=== PATIENT | female | born 1985 | race African-American/Black ===

== ENCOUNTER 2017-11-09 02:01 | Emergency (ER) | payer MEDICARE, MEDICAID ==
[2017-11-09] MEDS ORDERED: PENICILLIN V POTASSIUM 500 MG TABLET PO ONE (02:32)
[2017-11-09] MEDS ORDERED: HYDROCODONE/ACETAMINOPHEN 5-325 MG TABLET PO ONE (02:32)
--- NOTE | 2017-11-09 02:37 | ER Document Report ---
ED Oral Problem - General Chief Complaint: Toothache Stated Complaint: DENTAL PAIN WITH SWELLING Time Seen by Provider: 11/09/17 02:16 Mode of Arrival: Medic Information source: Patient, Relative - HPI Patient complains to provider of: Swelling of jaw, Toothache Notes: Patient is here with complaints of right dental pain with right jaw swelling. Patient has poor dental hygiene and states she has not seen a dentist in several years. She apparently woke up this evening with some right-sided jaw pain and swelling so she called EMS to bring her to the emergency department. She has had no fevers. No difficulty breathing or swallowing. No nausea, vomiting, diarrhea. No chest pain or shortness of breath. No rash. Pain is worse with touching the area, seems to be somewhat better with heat. She denies any other complaints at this time. - Related Data Allergies/Adverse Reactions: No Known Allergies Allergy (Verified 11/09/17 02:04) Past Medical History - Social History Smoking Status: Never Smoker Chew tobacco use (# tins/day): No Frequency of alcohol use: None Drug Abuse: None Family History: Reviewed & Not Pertinent Patient has suicidal ideation: No Patient has homicidal ideation: No Renal/ Medical History: Denies: Hx Peritoneal Dialysis Psychiatric Medical History: Reports: Hx Attention Deficit Hyperactivity Disorder, Hx Bipolar Disorder - As described by the patient - Immunizations Immunizations up to date: Yes Hx Diphtheria, Pertussis, Tetanus Vaccination: Yes Review of Systems - Review of Systems -: Yes All other systems reviewed and negative Physical Exam - Vital signs Vitals: Temp Pulse Resp BP Pulse Ox 98.0 F 100 18 113/61 96 11/09/17 02:10 11/09/17 02:10 11/09/17 02:10 11/09/17 02:10 11/09/17 02:10 - Notes Notes: GENERAL: alert, cooperative, nontoxic, no distress. HEAD: normocephalic, atraumatic EYES: conjunctiva pink without discharge, no external redness or swelling. EARS: no external swelling, no external redness NOSE: atraumatic, no external swelling MOUTH/THROAT: mucous membranes moist and pink. Widespread dental decay. Swelling to the right external jaw with no erythema. No palpable abscess. Right lower molar either to 30 or 31 has a large cavity. There is some tenderness around this tooth. There is no fluctuant drainable abscess identified at this time. There is no sublingual swelling or induration. NECK: soft, supple, full range of motion, no meningismus. CHEST: no distress, lungs clear and equal throughout. No wheezing, rales, rhonchi. CARDIAC: regular rate and rhythm, no murmur, normal capillary refill, normal pulses. BACK: full range of motion, no CVA tenderness. EXTREMITIES: full range of motion of all extremities. No redness, no swelling. NEURO: alert and oriented 3, no focal deficits, full range of motion of all extremities. PYSCH: appropriate mood, affect. Patient is cooperative. SKIN: pink, warm, dry, no rash. Course - Re-evaluation Re-evalutation: 11/09/17 02:34 Patient is nontoxic appearing with stable vitals. The patient is here with right jaw pain and swelling with right dental pain. She has widespread poor dental decay and has a large decayed tooth either to 30 or 31 that is tender around the gum. There is no drainable abscess identified. There is no facial cellulitis. Patient is afebrile with stable vitals. She is nontoxic appearing. There is no sign of Casey's angina. Patient will be given antibiotics and pain medication here in the emergency department. Discharged home with instructions to follow-up with a dentist at the next available appointment. Follow-up sooner for worsening pain, high fever, difficulty breathing or swallowing, or for any further concerns. The patient is noted to have elevated blood pressure during today's emergency department visit. The patient was informed of this finding. The patient was instructed that this may be related to pre-hypertension and requires further evaluation with a primary care provider. The patient has no hypertensive symptoms at this time. The patient's emergency department workup and current diagnosis were explained to the patient and or family. Follow-up instructions were provided. Medications if prescribed were discussed. Instructions for when to return to the emergency department including specific worrisome symptoms were discussed with the patient and/or family. - Vital Signs Vital signs: Temp Pulse Resp BP Pulse Ox 98.0 F 100 18 113/61 96 11/09/17 02:10 11/09/17 02:10 11/09/17 02:10 11/09/17 02:10 11/09/17 02:10 Discharge - Discharge Clinical Impression: Dental abscess Condition: Stable Disposition: HOME, SELF-CARE Instructions: [facility], Abscess ([facility]), Penicillin V K ([facility]), Toothache ([facility]), Oral Narcotic Medication ([facility]), Dentist Additional Instructions: Take medications as prescribed. Follow-up with a dentist at the next available appointment. Follow-up sooner for worsening pain, fever, swelling, difficulty breathing or swelling, or for any further concerns. Your blood pressure was elevated during today's visit. Have this rechecked with your doctor. The medication you were prescribed today may cause drowsiness. Do not drive or operate heavy machinery while taking this medication. Prescriptions: Hydrocodone/Acetaminophen [[place] 5-325 mg Tablet] 1 tab PO Q6H PRN #8 tab PRN Reason: Penicillin V Potassium [Penicillin Vk 500 mg Tablet] 500 mg PO QID #40 tablet Forms: Elevated Blood Pressure, Smoking Cessation Education Referrals: [facility] [Provider Group] - Follow up as needed [facility] [Provider Group] - Follow up as needed
[2017-11-09 03:09] VITALS: BP 102/64
== END 2017-11-09 03:28 | disposition home or self-care (01) ==
LOC: ER 02:01
DX: K04.7 Periapical abscess without sinus (principal); R03.0 Elevated blood-pressure reading, without diagnosis of hypertension
CPT/HCPCS: 99283; A9270 ×2

== ENCOUNTER 2018-01-24 19:09 | Observation (INO) | payer MEDICARE, MEDICAID ==
--- NOTE | 2018-01-24 20:45 | ER Document Report ---
ED General - General Chief Complaint: Chest Pain Stated Complaint: CHEST PAIN Time Seen by Provider: 01/24/18 20:16 Mode of Arrival: Ambulatory Information source: Patient Notes: 32-year-old female with no reported past medical history presents with complaint of chest pain that started 1 day prior to arrival. Patient states that yesterday evening while at rest she experienced chest tightness. She states that she is experience this intermittently throughout the night and most of today. She is currently pain-free and states the last time she felt chest tightness was 2 hours ago. Patient also reports new onset peripheral edema. She denies any fever, chills, shortness of breath. She does admit to a nonproductive dry cough. She denies any prior similar symptoms. She denies family history of early cardiac disease. She denies any new medications. She is a former smoker, denies alcohol and drug use. TRAVEL OUTSIDE OF THE [place] IN LAST 30 DAYS: No - HPI Onset: Yesterday Onset/Duration: Gradual, Intermittent, Gone Quality of pain: Other - tightness Severity: None Associated symptoms: Nonproductive cough Exacerbated by: Denies Relieved by: Denies Similar symptoms previously: No Recently seen / treated by doctor: No - Related Data Allergies/Adverse Reactions: No Known Allergies Allergy (Verified 11/09/17 02:04) Past Medical History - General Information source: Patient - Social History Smoking Status: Former Smoker Frequency of alcohol use: None Drug Abuse: None Lives with: Friend Family History: Reviewed & Not Pertinent - Medical History Medical History: Negative Renal/ Medical History: Denies: Hx Peritoneal Dialysis Psychiatric Medical History: Reports: Hx Attention Deficit Hyperactivity Disorder, Hx Bipolar Disorder - As described by the patient - Immunizations Immunizations up to date: Yes Hx Diphtheria, Pertussis, Tetanus Vaccination: Yes Review of Systems - Review of Systems Notes: REVIEW OF SYSTEMS: CONSTITUTIONAL : Denies fever, chills, or sweats. Denies recent illness. Denies weight loss, recent hospitalizations. EENT: Denies visula changes, eye pain. Denies nasal or sinus congestion or discharge. Denies sore throat, oral lesions, difficulty swallowing. CARDIOVASCULAR: Denies palpitations or racing or irregular heart beat. RESPIRATORY: Denies cold, or chest congestion. Denies shortness of breath, difficulty breathing, or wheezing. GASTROINTESTINAL: Denies abdominal pain or distention. Denies nausea, vomiting , or diarrhea. Denies blood in vomitus, stools, or per rectum. Denies black, tarry stools. Denies constipation. GENITOURINARY: Denies difficulty urinating, painful urination, burning, frequency, blood in urine, or vaginal discharge. MUSCULOSKELETAL: Denies back or neck pain or stiffness. Denies joint pain or swelling. SKIN: Denies rash, lesions or sores. HEMATOLOGIC : Denies easy bruising or bleeding. LYMPHATIC: Denies swollen, enlarged glands. NEUROLOGICAL: Denies confusion or altered mental status. Denies passing out or loss of consciousness. Denies dizziness or lightheadedness. Denies headache. Denies weakness or paralysis or loss of use of either side. Denies problems with gait or speech. Denies sensory loss, numbness, or tingling. Denies seizures. PSYCHIATRIC: Denies anxiety or stress. Denies depression, suicidal ideation, or homicidal ideation. Physical Exam - Vital signs Vitals: Temp Pulse Resp BP Pulse Ox 97.6 F 88 16 124/83 98 01/24/18 19:38 01/24/18 19:38 01/24/18 19:38 01/24/18 19:38 01/24/18 19:38 - Notes Notes: PHYSICAL EXAMINATION: GENERAL: Well-appearing, well-nourished and in no acute distress. HEAD: Atraumatic, normocephalic. EYES: Pupils equal round and reactive to light, extraocular movements intact, conjunctiva are normal. ENT: Nares patent, oropharynx clear without exudates. Moist mucous membranes. NECK: Normal range of motion, supple without lymphadenopathy LUNGS: Breath sounds clear to auscultation bilaterally and equal. No wheezes rales or rhonchi. HEART: Regular rate and rhythm without murmurs ABDOMEN: Soft, nontender, nondistended abdomen. No guarding, no rebound. No masses appreciated. Female : deferred Musculoskeletal: Normal range of motion, 1+ edema. No cyanosis. NEUROLOGICAL: Cranial nerves grossly intact. Normal speech, normal gait. Normal sensory, motor exams PSYCH: Normal mood, normal affect. SKIN: Warm, Dry, normal turgor, no rashes or lesions noted. Course - Re-evaluation Re-evalutation: 01/25/18 00:15 Laboratory 01/24/18 01/24/18 01/24/18 21:14 21:14 21:14 WBC 8.4 RBC 4.18 Hgb 12.7 Hct 37.8 MCV 90 MCH 30.5 MCHC 33.7 RDW 14.1 H Plt Count 274 Seg Neutrophils % 63.9 Lymphocytes % 24.9 Monocytes % 6.6 Eosinophils % 4.3 Basophils % 0.3 Absolute Neutrophils 5.4 Absolute Lymphocytes 2.1 Absolute Monocytes 0.6 Absolute Eosinophils 0.4 Absolute Basophils 0.0 D-Dimer Sodium 142.7 Potassium 3.9 Chloride 107 Carbon Dioxide 28 Anion Gap 8 BUN 7 Creatinine 0.67 Est GFR ( Amer) > 60 Est GFR (Non-Af Amer) > 60 Glucose 75 Calcium 9.4 Total Bilirubin 0.8 Direct Bilirubin 0.2 Neonat Total Bilirubin Not Reportable Neonat Direct Bilirubin Not Reportable Neonat Indirect Bili Not Reportable AST 18 ALT 16 Alkaline Phosphatase 60 Creatine Kinase 100 CK-MB (CK-2) 0.59 Troponin I < 0.012 NT-Pro-B Natriuret Pep 380 H Total Protein 6.6 Albumin 3.7 Urine Color Urine Appearance Urine pH Ur Specific Roma Urine Protein Urine Glucose (UA) Urine Ketones Urine Blood Urine Nitrite Urine Bilirubin Urine Urobilinogen Ur Leukocyte Esterase Urine WBC (Auto) Urine RBC (Auto) Urine Bacteria (Auto) Urine WBC Clumps Squamous Epi Cells Auto Urine Mucus (Auto) Urine Ascorbic Acid Urine Opiates Screen Urine Methadone Screen Ur Barbiturates Screen Ur Phencyclidine Scrn Ur Amphetamines Screen U Benzodiazepines Scrn Urine Cocaine Screen U Marijuana (THC) Screen 01/24/18 01/24/18 01/24/18 21:14 23:35 23:35 WBC RBC Hgb Hct MCV MCH MCHC RDW Plt Count Seg Neutrophils % Lymphocytes % Monocytes % Eosinophils % Basophils % Absolute Neutrophils Absolute Lymphocytes Absolute Monocytes Absolute Eosinophils Absolute Basophils D-Dimer 0.92 H Sodium Potassium Chloride Carbon Dioxide Anion Gap BUN Creatinine Est GFR ( Amer) Est GFR (Non-Af Amer) Glucose Calcium Total Bilirubin Direct Bilirubin Neonat Total Bilirubin Neonat Direct Bilirubin Neonat Indirect Bili AST ALT Alkaline Phosphatase Creatine Kinase CK-MB (CK-2) Troponin I NT-Pro-B Natriuret Pep Total Protein Albumin Urine Color YELLOW Urine Appearance CLOUDY Urine pH 7.0 Ur Specific Roma 1.006 Urine Protein NEGATIVE Urine Glucose (UA) NEGATIVE Urine Ketones NEGATIVE Urine Blood SMALL H Urine Nitrite NEGATIVE Urine Bilirubin NEGATIVE Urine Urobilinogen NEGATIVE Ur Leukocyte Esterase SMALL H Urine WBC (Auto) 11 Urine RBC (Auto) 2 Urine Bacteria (Auto) TRACE Urine WBC Clumps RARE Squamous Epi Cells Auto 25 Urine Mucus (Auto) RARE Urine Ascorbic Acid NEGATIVE Urine Opiates Screen NEGATIVE Urine Methadone Screen NEGATIVE Ur Barbiturates Screen NEGATIVE Ur Phencyclidine Scrn NEGATIVE Ur Amphetamines Screen NEGATIVE U Benzodiazepines Scrn NEGATIVE Urine Cocaine Screen NEGATIVE U Marijuana (THC) Screen NEGATIVE Chest X-Ray 01/24/18 20:39 IMPRESSION: Peribronchial cuffing and interstitial changes. No dense consolidation, significant effusion, or pneumothorax. 32-year-old female with no reported past medical history presents with complaint of chest pain that started 1 day prior to arrival. Patient states that yesterday evening while at rest she experienced chest tightness. She states that she is experience this intermittently throughout the night and most of today. She is currently pain-free and states the last time she felt chest tightness was 2 hours ago. Patient also reports new onset peripheral edema. She denies any fever, chills, shortness of breath. She does admit to a nonproductive dry cough. Upon arrival patient was placed on astrochemist and EKG was obtained which shows the patient be in normal this rhythm but does have low voltage throughout. Exam is significant for 1+ pitting edema bilaterally. Chest x-ray significant for peribronchial cuffing. CTA does show bilateral pleural effusions but no PE. Patient did receive Lasix 20 mg p.o. Patient agreeable to admission. CBC is without leukocytosis or anemia. CMP shows no electrolyte abnormalities. Cardiac enzymes are within normal limits. Patient does have an elevated BNP, mildly elevated d-dimer. Urinalysis within normal limits urine drug screen within normal limits. Hospitalist consulted for admission. There is concern for cardiomyopathy in a healthy 32-year-old female. 01/25/18 00:23 01/25/18 00:23 01/25/18 00:24 - Vital Signs Vital signs: Temp Pulse Resp BP Pulse Ox 97.6 F 88 18 131/86 H 100 01/24/18 19:38 01/24/18 19:38 01/24/18 23:08 01/24/18 23:08 01/24/18 23:08 - Laboratory Result Diagrams: 01/24/18 21:14 01/24/18 21:14 Laboratory results interpreted by me: 01/24/18 01/24/18 01/24/18 21:14 21:14 21:14 RDW 14.1 H D-Dimer 0.92 H NT-Pro-B Natriuret Pep 380 H Urine Blood Ur Leukocyte Esterase 01/24/18 23:35 RDW D-Dimer NT-Pro-B Natriuret Pep Urine Blood SMALL H Ur Leukocyte Esterase SMALL H - Diagnostic Test Radiology reviewed: Image reviewed, Reports reviewed - EKG Interpretation by Me EKG shows normal: Sinus rhythm Rate: Normal Rhythm: NSR Voltage: Decreased voltage When compared to previous EKG there are: Previous EKG unavailable Discharge - Discharge Clinical Impression: Elevated brain natriuretic peptide (BNP) level, Peripheral edema, Pleural effusion Chest pain Qualifiers: Chest pain type: unspecified Qualified Code(s): R07.9 - Chest pain, unspecified Condition: Good Disposition: ADMITTED INPATIENT Admitting Provider: Hospitalist Unit Admitted: Telemetry Forms: Elevated Blood Pressure
--- NOTE | 2018-01-24 21:09 | RADIOLOGY REPORT (SQ) ---
EXAM DESCRIPTION: CHEST 2 VIEWS COMPLETED DATE/TIME: 01/24/2018 9:02 pm REASON FOR STUDY: chest pain COMPARISON: None. NUMBER OF VIEWS: Two view. TECHNIQUE: Frontal and lateral radiographic views of the chest acquired. LIMITATIONS: None. FINDINGS: LUNGS AND PLEURA: Peribronchial cuffing and interstitial changes. No dense consolidation, significant effusion, or pneumothorax. MEDIASTINUM AND HILAR STRUCTURES: No masses. No contour abnormalities. HEART AND VASCULAR STRUCTURES: Heart normal in size and contour. No evidence for failure. BONES: No acute findings. HARDWARE: None in the chest. OTHER: No other significant finding. IMPRESSION: Peribronchial cuffing and interstitial changes. No dense consolidation, significant eff usion, or pneumothorax. TECHNICAL DOCUMENTATION: JOB ID: [id number] 2010 [employer]- All Rights Reserved Reading location - IP/workstation name: [email or web address]
[2018-01-24] MEDS ORDERED: FUROSEMIDE INJ/PF 20 MG/2 ML SDV IV ONE (21:14)
[2018-01-24 21:29] LABS: ABSOLUTE EOSINOPHILS # (AUTO) 0.4 10^3/uL (0.0-0.6); ABSOLUTE LYMPHOCYTES (AUTO) 2.1 10^3/uL (0.5-4.7); ABSOLUTE MONOCYTES (AUTO) 0.6 10^3/uL (0.1-1.4); ABSOLUTE NEUT (AUTO) 5.4 10^3/uL (1.7-8.2); BASOPHILS % (AUTO) 0.3 % (0-2); EOSINOPHILS % (AUTO) 4.3 % (0-6); HEMATOCRIT 37.8 % (36.0-47.0); HEMOGLOBIN 12.7 g/dL (12.0-15.5); LYMPHOCYTES % (AUTO) 24.9 % (13-45); MEAN CORPUSCULAR HEMOGLOBIN 30.5 pg (27.0-33.4); MEAN CORPUSCULAR HGB CONC 33.7 g/dL (32.0-36.0); MEAN CORPUSCULAR VOLUME 90 fl (80-97); MONOCYTES % (AUTO) 6.6 % (3-13); PLATELET COUNT 274 10^3/uL (150-450); RED BLOOD COUNT 4.18 10^6/uL (3.72-5.28); RED CELL DISTRIBUTION WIDTH 14.1 % (11.5-14.0); SEGMENTED NEUTROPHILS % (AUTO) 63.9 % (42-78); TOTAL CELLS COUNTED % (AUTO) 100 %; WHITE BLOOD COUNT 8.4 10^3/uL (4.0-10.5)
[2018-01-24 21:51] LABS: ALANINE AMINOTRANSFERASE 16 U/L (9-52); ALBUMIN 3.7 g/dL (3.5-5.0); ALKALINE PHOSPHATASE 60 U/L (38-126); ANION GAP 8 (5-19); ASPARTATE AMINO TRANSFERASE 18 U/L (14-36); BILIRUBIN,DIRECT 0.2 mg/dL (0.0-0.4); BILIRUBIN,TOTAL 0.8 mg/dL (0.2-1.3); BLOOD UREA NITROGEN 7 mg/dL (7-20); CALCIUM 9.4 mg/dL (8.4-10.2); CARBON DIOXIDE 28 mmol/L (22-30); CHLORIDE 107 mmol/L (98-107); CREATINE KINASE 100 U/L (30-135); GLUCOSE 75 mg/dL (75-110); POTASSIUM 3.9 mmol/L (3.6-5.0); SODIUM 142.7 mmol/L (137-145); TOTAL PROTEIN 6.6 g/dL (6.3-8.2)
[2018-01-24 21:57] LABS: CREATINE KINASE MB 0.59 ng/mL (<4.55); NT PRO BNP 380 pg/mL (<125)
[2018-01-24 22:05] LABS: TROPONIN I < 0.012 ng/mL
--- NOTE | 2018-01-24 22:36 | EKG REPORT ---
SEVERITY:- BORDERLINE ECG - SINUS RHYTHM LOW VOLTAGE IN FRONTAL LEADS : Confirmed by: Judith Dias MD 24-Jan-2018 22:36:15
[2018-01-24 23:58] LABS: APPEARANCE,URINE CLOUDY; BILIRUBIN,URINE NEGATIVE (NEGATIVE); COLOR,URINE YELLOW; GLUCOSE, URINE NEGATIVE (NEGATIVE); KETONES,URINE NEGATIVE (NEGATIVE); LEUKOCYTE ESTERASE,URINE SMALL (NEGATIVE); NITRITE,URINE NEGATIVE (NEGATIVE); PROTEIN,URINE NEGATIVE (NEGATIVE); URINE SPECIFIC GRAVITY 1.006; UROBILINOGEN,URINE NEGATIVE mg/dL (<2.0)
--- NOTE | 2018-01-25 00:05 | RADIOLOGY REPORT (SQ) ---
EXAM DESCRIPTION: CT CHEST ANGIOGRAPHY WITHOUT THEN WITH IV CONTRAST CLINICAL HISTORY: 32 years Female, elevated dimer 0.92 Comparison: CR, same day. Technique: IV contrast. Coronal and sagittal reformat. 3d reconstruction. This exam was performed according to our departmental dose-optimization program, which includes automated exposure control, adjustment of the mA and/or kV according to patient size and/or use of iterative reconstruction technique.[facility]: Dose Right [facility]: CareDose [facility]: Dose Right [facility]: Teradose 4D [facility]: Smart [employer] LIMITATIONS: None Findings: Small moderate bilateral pleural effusions, left more than right. Mild dependent atelectasis or scar. Mild mixed interstitial and hazy airspace opacity in the left lower lobe.. No pulmonary embolus. No right ventricular strain. Inferior neck, axillae, mediastinum, lungs, airway, lymphatics, heart, vasculature, upper abdomen, and musculoskeleton appear unremarkable. Impression: 1. Mild mixed interstitial and airpace opacities of the left lower lobe. Small-moderate bilateral pleural effusions, left more than right. Differential diagnosis includes subacute pulmonary edema and atypical pneumonitis. Two. No pulmonary embolus.
[2018-01-25 00:09] LABS: URINE AMPHETAMINES SCREEN NEGATIVE; URINE BARBITURATES SCREEN NEGATIVE; URINE BENZODIAZEPINES SCREEN NEGATIVE; URINE COCAINE SCREEN NEGATIVE; URINE MARIJUANA (THC) SCREEN NEGATIVE; URINE METHADONE SCREEN NEGATIVE; URINE PHENCYCLIDINE SCREEN NEGATIVE
[2018-01-25] MEDS ORDERED: FUROSEMIDE INJ/PF 20 MG/2 ML SDV ONE (00:28)
[2018-01-25 05:52] LABS: ANION GAP 9 (5-19); BLOOD UREA NITROGEN 8 mg/dL (7-20); CALCIUM 9.4 mg/dL (8.4-10.2); CARBON DIOXIDE 28 mmol/L (22-30); CHLORIDE 106 mmol/L (98-107); GLUCOSE 95 mg/dL (75-110); POTASSIUM 3.6 mmol/L (3.6-5.0); SODIUM 143.1 mmol/L (137-145)
[2018-01-25] MEDS: HEPARIN SOD (PORCINE) 5,000 UNIT/ML 1 ML SYRINGE SUBCUT SCH ×2 (06:27→13:34)
--- NOTE | 2018-01-25 06:47 | PDOC H&P ---
History of Present Illness Admission Date/PCP: 01/25/18 00:28 Patient complains of: Chest tightness and leg swelling History of Present Illness: SHILO KNIGHT is a 32 year old female with past medical history ADHD and presents with 1 week of leg edema, chest tightness, palpitations and orthopnea. Patient denies previous episode, prolonged chest pain, nausea or vomiting, she denies recent viral illness, stimulants, [id number] medication use, alcohol, diet supplements or energy drinks. She admits to consuming approximately four 64 ounce beverages a day and complains of heat intolerance, anxiety and insomnia. She complains of acute on chronic dental pain to the right jaw. Past Medical History Medical History: None Psychiatric Medical History: Reports: Attention Deficit Hyperactivity Disorder, Bipolar Disorder - As described by the patient Past Surgical History Past Surgical History: Reports: None Social History Information Source: Patient Lives with: Friend Smoking Status: Former Smoker Frequency of Alcohol Use: None Drugs: None - Advance Directive Resuscitation Status: Full Code Family History Family History: Reviewed & Not Pertinent Parental Family History Reviewed: Yes Children Family History Reviewed: Yes Sibling(s) Family History Reviewed.: Yes Medication/Allergy Home Medications: Hydrocodone/Acetaminophen [[place] 5-325 mg Tablet] 1 tab PO Q6H PRN #8 tab Penicillin V Potassium [Penicillin Vk 500 mg Tablet] 500 mg PO QID #40 tablet Allergies/Adverse Reactions: No Known Allergies Allergy (Verified 11/09/17 02:04) Review of Systems Constitutional: ABSENT: chills, fever(s), headache(s), weight gain, weight loss Eyes: ABSENT: visual disturbances Ears: ABSENT: hearing changes Cardiovascular: ABSENT: chest pain, dyspnea on exertion, edema, orthropnea, palpitations Respiratory: ABSENT: cough, hemoptysis Gastrointestinal: ABSENT: abdominal pain, constipation, diarrhea, hematemesis, hematochezia, nausea, vomiting Genitourinary: ABSENT: dysuria, hematuria Musculoskeletal: ABSENT: joint swelling Integumentary: ABSENT: rash, wounds Neurological: ABSENT: abnormal gait, abnormal speech, confusion, dizziness, focal weakness, syncope Psychiatric: ABSENT: anxiety, depression, homidical ideation, suicidal ideation Endocrine: ABSENT: cold intolerance, heat intolerance, polydipsia, polyuria Hematologic/Lymphatic: ABSENT: easy bleeding, easy bruising Physical Exam Vital Signs: Temp Pulse Resp BP Pulse Ox 98.3 F 123 H 18 110/68 99 01/25/18 04:09 01/25/18 04:09 01/25/18 04:09 01/25/18 04:09 01/25/18 04:09 Intake & Output 01/23/18 01/24/18 01/25/18 11:59 11:59 11:59 Intake Total 905 Balance 905 Weight 76.8 kg General appearance: PRESENT: no acute distress, well-developed, well-nourished Head exam: PRESENT: atraumatic, normocephalic Eye exam: PRESENT: conjunctiva pink, EOMI, PERRLA. ABSENT: scleral icterus Ear exam: PRESENT: normal external ear exam Mouth exam: PRESENT: moist, tongue midline Neck exam: ABSENT: carotid bruit, JVD, lymphadenopathy, thyromegaly Respiratory exam: PRESENT: clear to auscultation emily. ABSENT: rales, rhonchi, wheezes Cardiovascular exam: PRESENT: RRR. ABSENT: diastolic murmur, rubs, systolic murmur Pulses: PRESENT: normal dorsalis pedis pul Vascular exam: PRESENT: normal capillary refill GI/Abdominal exam: PRESENT: normal bowel sounds, soft. ABSENT: distended, guarding, mass, organolmegaly, rebound, tenderness Rectal exam: PRESENT: deferred Extremities exam: PRESENT: full ROM. ABSENT: calf tenderness, clubbing, pedal edema Neurological exam: PRESENT: alert, awake, oriented to person, oriented to place , oriented to time, oriented to situation, CN II-XII grossly intact. ABSENT: motor sensory deficit Psychiatric exam: PRESENT: appropriate affect, normal mood. ABSENT: homicidal ideation, suicidal ideation Skin exam: PRESENT: dry, intact, warm. ABSENT: cyanosis, rash Results Laboratory Results: 01/25/18 04:32 01/25/18 04:32 Sodium 143.1 Potassium 3.6 Chloride 106 Carbon Dioxide 28 Anion Gap 9 BUN 8 Creatinine 0.74 Est GFR ( Amer) > 60 Est GFR (Non-Af Amer) > 60 Glucose 95 Calcium 9.4 Impressions: Chest X-Ray 01/24/18 20:39 IMPRESSION: Peribronchial cuffing and interstitial changes. No dense consolidation, significant effusion, or pneumothorax. Assessment & Plan - Diagnosis (1) Cardiomyopathy Is this a current diagnosis for this admission?: Yes Plan: Likely secondary uncontrolled ADHD with high-output tachycardia. Trial trazodone, beta-moira, follow-up 2D echo (2) Dental abscess Is this a current diagnosis for this admission?: Yes Plan: Doxycycline. (3) ADHD Is this a current diagnosis for this admission?: Yes Plan: Trial trazodone, consider SSRI, avoid amphetamine, education - Time Time Spent: 30 to 50 Minutes - Inpatient Certification Medical Necessity: Need Close Monitoring Due to Risk of Patient Decompensation
[2018-01-25] MEDS ORDERED: DOXYCYCLINE HYCLATE 100 MG TABLET PO ONE ×2 (07:00→08:00)
[2018-01-25] MEDS ORDERED: TRAZODONE HCL 50 MG TABLET PO ONE (07:30)
[2018-01-25] MEDS ORDERED: METOPROLOL TARTRATE 50 MG TABLET PO ONE (07:30)
[2018-01-25] MEDS ORDERED: ASPIRIN 81 MG TABLET, ENT COATED PO SCH (10:00)
[2018-01-25] MEDS ORDERED: TRAZODONE HCL 50 MG TABLET PO SCH ×2 (10:00→22:00)
[2018-01-25] MEDS ORDERED: ENALAPRIL MALEATE 2.5 MG TABLET PO SCH (10:00)
[2018-01-25] MEDS ORDERED: POTASSIUM CHLORIDE 10 MEQ TABLET.SA PO SCH (10:00)
[2018-01-25] MEDS ORDERED: DOCUSATE SODIUM 100 MG CAPSULE PO SCH (10:00)
[2018-01-25] MEDS ORDERED: DOXYCYCLINE HYCLATE 100 MG TABLET PO SCH ×2 (10:00→22:00)
--- NOTE | 2018-01-25 13:54 | XCELERA REPORT ---
[address] [address] Transthoracic Echocardiogram Report Name: SHILO KNIGHT Age: 32 yrs Gender: Female : 1985 Patient Status: Inpatient Patient Location: [address] [place] [address] Study Date: 01/25/2018 10:35 AM Procedure: A complete two-dimensional transthoracic echocardiogram was performed (2D, M-mode, spectral and color flow Doppler). The study was technically adequate with some images being suboptimal in quality. 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 There is normal left ventricular wall thickness. The left ventricle is grossly normal size. Doppler measurements suggest normal left ventricular diastolic function Wall motion cannot be accurately commented on, but no definite regional wall motion abnormalities noted. The right ventricle is mildly dilated. The right ventricular systolic function is normal. The right atrium is normal in size The left atrial size is normal. There is no mitral valve stenosis. There is no mitral regurgitation noted. No aortic regurgitation is present. There is no aortic valve stenosis There is a trace or physiologic amount of tricuspid regurgitation Tricuspid regurgitation jet envelope not well defined to measure RV systolic pressure accurately. The aortic root is not well visualized but is probably normal size. The inferior vena cava was not well visualized There is no pericardial effusion. MMode/2D Measurements & Calculations RVDd: 2.1 cm LVIDd: 4.4 cm FS: 41.2 % Ao root diam: 2.3 cm IVSd: 0.74 cm LVIDs: 2.6 cm EDV(Teich): 85.8 ml Ao root area: 4.3 cm2 LVPWd: 1.0 cm ESV(Teich): 23.8 ml EF(Teich): 72.3 % LVOT diam: 1.9 cm LVOT area: 2.7 cm2 Doppler Measurements & Calculations MV E max shreyas: MV dec slope: Ao V2 max: LV V1 max P.5 cm/sec 92.0 cm/sec 3.2 mmHg MV A max shreyas: 679.2 cm/sec2 Ao max PG: LV V1 max: 65.4 cm/sec MV dec time: 3.4 mmHg 89.5 cm/sec MV E/A: 1.6 0.16 sec PETER(V,D): 2.6 cm2 PA V2 max: PI end-d shreyas: TR max shreyas: Pulm Sys Shreyas: 76.9 cm/sec 104.4 cm/sec 184.5 cm/sec 71.3 cm/sec PA max PG: TR max PG: Pulm Grijalva Shreyas: 2.4 mmHg 13.6 mmHg 56.9 cm/sec Pulm S/D: 1.3 Left Ventricle The left ventricle is grossly normal size. There is normal left ventricular wall thickness. The left ventricular ejection fraction is normal. Doppler measurements suggest normal left ventricular diastolic function. Wall motion cannot be accurately commented on, but no definite regional wall motion abnormalities noted. Right Ventricle The right ventricle is mildly dilated. There is normal right ventricular wall thickness. The right ventricular systolic function is normal. Atria The right atrium is normal in size. The left atrial size is normal. Interarterial septum not well visualized and not well dopplered. Cannot comment on ASD/PFO presence. Mitral Valve The mitral valve is grossly normal. There is no mitral valve stenosis. There is no mitral regurgitation noted. Aortic Valve The aortic valve is grossly normal. There is no aortic valve stenosis. No aortic regurgitation is present. Tricuspid Valve The tricuspid valve is not well visualized, but is grossly normal. There is no tricuspid stenosis. There is a trace or physiologic amount of tricuspid regurgitation. Tricuspid regurgitation jet envelope not well defined to measure RV systolic pressure accurately. Pulmonic Valve The pulmonic valve is not well visualized. Great Vessels The aortic root is not well visualized but is probably normal size. The inferior vena cava was not well visualized. Effusions There is no pericardial effusion. : BEHZAD THOMPSON > Rex Daily
[2018-01-25 16:07] VITALS: BP 97/55
[2018-01-25] MEDS ORDERED: METOPROLOL TARTRATE 50 MG TABLET PO SCH (22:00)
--- NOTE | 2018-01-26 09:41 | PDOC DISCHARGE SUMMARY ---
General - Admit/Disc Date/PCP Admission Date/Primary Care Provider: 01/25/18 00:28 Discharge Date: 01/26/18 - Discharge Diagnosis (1) Peripheral edema Is this a current diagnosis for this admission?: Yes Summary: Resolved on its own as we got her to come down. Her echocardiogram showed a normal ejection fraction, no evident wall motion abnormality, no valvular abnormalities. She came in very tachycardic, and agitated. I suspect this is high output (diastolic) heart failure that resolved with slowing her heart rate. There is some question of whether she may have been drinking energy drinks. She is quite impaired and provides a patchy history. I empirically put her on some Coreg to see if we could limit her heart rate when she gets agitated. She can follow-up as an outpatient. (2) ADHD Is this a current diagnosis for this admission?: Yes Summary: Not on any medication. Does not appear to have primary care. We have made a referral. (3) Dental abscess Is this a current diagnosis for this admission?: Yes Summary: Discharged on doxycycline and recommended that she follow-up with a dentist in about a week. - Additional Information Resuscitation Status: Full Code Discharge Diet: Cardiac Discharge Activity: Activity As Tolerated Prescriptions: Carvedilol [Coreg 3.125 mg Tablet] 3.125 mg PO Q12 #60 tablet Doxycycline Hyclate [Vibramycin 100 mg Tablet] 100 mg PO Q12 #20 tablet Home Medications: Carvedilol [Coreg 3.125 mg Tablet] 3.125 mg PO Q12 #60 tablet 01/25/18 Doxycycline Hyclate [Vibramycin 100 mg Tablet] 100 mg PO Q12 #20 tablet History of Present Illness Patient complains of: Leg swelling History of Present Illness: SHILO KNIGHT is a 32 year old female with past medical history ADHD and presents with 1 week of leg edema, chest tightness, palpitations and orthopnea. Patient denies previous episode, prolonged chest pain, nausea or vomiting, she denies recent viral illness, stimulants, [id number] medication use, alcohol, diet supplements or energy drinks. She admits to consuming approximately four 64 ounce beverages a day and complains of heat intolerance, anxiety and insomnia. She complains of acute on chronic dental pain to the right jaw. Hospital Course Hospital Course: Echocardiogram showed a normal ventricular ejection fraction. She was given trazodone at night to help her rest which also brought down her heart rate. Her symptoms resolved overnight. I empirically started her on some Coreg to see if we could limit her rate related symptoms. She is not on any medication for her ADHD. She needs to establish primary care. We started her on antibiotics for some jaw swelling and recommended that she follow-up with a dentist. I think her symptoms are most likely related to consumption of sport drinks in someone who does not need any additional stimulation. I warned against future use. Physical Exam Vital Signs: Temp Pulse Resp BP Pulse Ox 98.2 F 88 15 97/55 L 100 01/25/18 16:00 01/25/18 16:00 01/25/18 16:00 01/25/18 16:00 01/25/18 16:00 Intake & Output 01/25/18 01/26/18 01/27/18 05:59 05:59 05:59 Intake Total 5 900 Balance 5 900 Weight 169 lb 5.04 oz General appearance: PRESENT: no acute distress Respiratory exam: PRESENT: clear to auscultation emily Cardiovascular exam: PRESENT: RRR GI/Abdominal exam: PRESENT: soft Extremities exam: ABSENT: other - No edema Neurological exam: PRESENT: alert, CN II-XII grossly intact. ABSENT: motor sensory deficit Psychiatric exam: PRESENT: unusual affect Skin exam: PRESENT: warm Results Laboratory Results: 01/25/18 04:32 Impressions: Chest X-Ray 01/24/18 20:39 IMPRESSION: Peribronchial cuffing and interstitial changes. No dense consolidation, significant effusion, or pneumothorax. Qualifiers - * PATIENT BEING DISCHARGED WITH ANY OF THE FOLLOWING DIAGNOSIS: Heart Failure HF Pt being discharged on ACEI for LVEF less than 40%?: No Reason(s) for not prescribing ACEI:: Not indicated HF Pt being discharged on ARBS for LVEF less than 40%?: No Reason(s) for not prescribing ARBS:: Not indicated HF Pt with Afib discharged with Warfarin?: No Reason(s) for not prescribing Warfarin:: Not indicated HF Pt discharged on evidence-based Beta Gema:: Yes
== END 2018-01-25 16:32 | disposition home or self-care (01) ==
LOC: ER 19:09 → OBSVTOIN 01-25 00:28 → EH 01-25 00:28 → INTOOBSV 01-25 00:28 → 4N 01-25 02:00
PROVIDERS: ADMIT Internal Medicine; ATTEND Internal Medicine
DX: R60.0 Localized edema (principal); R00.0 Tachycardia, unspecified; R45.1 Restlessness and agitation; F90.9 Attention-deficit hyperactivity disorder, unspecified type; K04.7 Periapical abscess without sinus; F41.9 Anxiety disorder, unspecified; G47.00 Insomnia, unspecified; R05 Cough; R07.89 Other chest pain; J90 Pleural effusion, not elsewhere classified; Z87.891 Personal history of nicotine dependence; R79.89 Other specified abnormal findings of blood chemistry
CPT/HCPCS: 93005; 99285; 36415 ×2; 82553; 82550; 84443; 85025; 85652; 80048; 80053; 81001; 84484; 80307; 85379; 83880; 93306; 71046; 71275; 93010; G0378; A9270 ×6; J1940; J3490